=== PATIENT | male | born 1950 | race Caucasian/White ===

== ENCOUNTER → 2017-10-08 | Day surgery (SDC) | payer MEDICARE, OTHER ==
[~2017-10-08] MED LIST: ALTACE; AMIODARONE HCL400 MG PO; AMLODIPINE BESY10 MG PO; ASPIRIN81 MG PO; DIGOXIN125 MCG PO; FISH OIL + VIT1 EACH; FUROSEMIDE40 MG PO; GLUCOSAMINE 1,1 EACH PO; INSULIN REGULAR, HUMAN 100 UNIT/1 ML 3ML VIAL ONE; KOMBIGLYZE XR1 EAC2 PO; LORTAB 7.5-5001 EACH PO; METFORMIN; METFORMIN HCL500 MG PO; METFORMIN PO; METOPROLOL SUCC50 MG PO; METOPROLOL TAR100 MG PO; MULTI-VITAMIN1 EACH PO; OR PHACO EYE KIT ONE; PANTOPRAZOLE SO40 MG PO; PLAVIX; PLAVIX75 MG PO; POTASSIUM CHLO10 ME1 PO; PREOP PHACO EYE KIT ONE; RAMIPRIL10 MG PO; RAMIPRIL5 MG PO; SAXAGLIPTIN PO; SIMVASTATIN20 MG PO; VITAMIN C1000 M2 PO; VITAMIN E COMP1 EACH PO; XARELTO20 MG PO
== END | disposition home or self-care (01) ==
LOC: OR 11:11
PROVIDERS: ATTEND Ophthalmology
DX: H25.11 Age-related nuclear cataract, right eye (principal); I10 Essential (primary) hypertension; I48.91 Unspecified atrial fibrillation; E11.9 Type 2 diabetes mellitus without complications; K21.9 Gastro-esophageal reflux disease without esophagitis; M19.90 Unspecified osteoarthritis, unspecified site; Z79.02 Long term (current) use of antithrombotics/antiplatelets
CPT/HCPCS: 36415; 66984; 82948; V2632

== ENCOUNTER → 2018-05-06 | Day surgery (SDC) | payer MEDICARE, OTHER ==
[~2018-05-06] MED LIST changes: -INSULIN REGULAR, HUMAN 100 UNIT/1 ML 3ML VIAL ONE; +KETAMINE HCL INJ 50 MG/ML 10 ML VIAL ONE; +LEVEMIR100 UNIT/1 SC; +LIDOCAINE HCL 2% LOCAL INJ 5 ML SDV VIAL INJ ONE; +METRONIDAZOLE500 MG PO; +MIDAZOLAM HCL 2 MG/2 ML VIAL ONE; +NOVOLOG100 UNITS1 SC; -OR PHACO EYE KIT ONE; -PREOP PHACO EYE KIT ONE; +PROPOFOL IV EMULSION 10 MG/ML 50 ML VIAL ONE
== END | disposition home or self-care (01) ==
LOC: OR 08:23
PROVIDERS: ATTEND Internal Medicine Gastroenterology
DX: K29.70 Gastritis, unspecified, without bleeding (principal); K44.9 Diaphragmatic hernia without obstruction or gangrene; K21.9 Gastro-esophageal reflux disease without esophagitis; J45.909 Unspecified asthma, uncomplicated; J61 Pneumoconiosis due to asbestos and other mineral fibers; I10 Essential (primary) hypertension; I25.2 Old myocardial infarction; N20.0 Calculus of kidney; Z79.02 Long term (current) use of antithrombotics/antiplatelets; Z79.4 Long term (current) use of insulin; Z86.73 Personal history of transient ischemic attack (TIA), and cerebral infarction without residual deficits
CPT/HCPCS: 36415; 43239; 82948; 88305; 88312; J2001; J2250

== ENCOUNTER → 2018-05-13 | Day surgery (SDC) | payer MEDICARE, OTHER ==
[~2018-05-13] MED LIST changes: +FENTANYL CITRATE/PF 100MCG/2 ML INJ ONE; -KETAMINE HCL INJ 50 MG/ML 10 ML VIAL ONE
== END | disposition home or self-care (01) ==
LOC: OR 06:42
PROVIDERS: ATTEND Internal Medicine Gastroenterology
DX: Z12.11 Encounter for screening for malignant neoplasm of colon (principal); D12.0 Benign neoplasm of cecum; D12.2 Benign neoplasm of ascending colon; D12.4 Benign neoplasm of descending colon; K57.30 Diverticulosis of large intestine without perforation or abscess without bleeding; K64.8 Other hemorrhoids; K29.70 Gastritis, unspecified, without bleeding; K21.9 Gastro-esophageal reflux disease without esophagitis; K44.9 Diaphragmatic hernia without obstruction or gangrene; I10 Essential (primary) hypertension; I34.1 Nonrheumatic mitral (valve) prolapse; I48.91 Unspecified atrial fibrillation; R01.1 Cardiac murmur, unspecified; E11.9 Type 2 diabetes mellitus without complications; J45.909 Unspecified asthma, uncomplicated; N20.0 Calculus of kidney; I25.2 Old myocardial infarction; E78.5 Hyperlipidemia, unspecified; M19.90 Unspecified osteoarthritis, unspecified site; Z79.02 Long term (current) use of antithrombotics/antiplatelets; Z79.4 Long term (current) use of insulin; Z68.33 Body mass index [BMI] 33.0-33.9, adult; Z87.01 Personal history of pneumonia (recurrent); Z86.73 Personal history of transient ischemic attack (TIA), and cerebral infarction without residual deficits; Z96.652 Presence of left artificial knee joint; Z87.891 Personal history of nicotine dependence
CPT/HCPCS: 36415; 45384; 45385; 82948; 88305; J2001; J2250

== ENCOUNTER → 2019-01-01 | Outpatient (CLI) | payer MEDICARE, OTHER ==
[~2019-01-01] MED LIST changes: -FENTANYL CITRATE/PF 100MCG/2 ML INJ ONE; -LIDOCAINE HCL 2% LOCAL INJ 5 ML SDV VIAL INJ ONE; -MIDAZOLAM HCL 2 MG/2 ML VIAL ONE; -PROPOFOL IV EMULSION 10 MG/ML 50 ML VIAL ONE
--- NOTE | 2019-01-01 13:05 | Diagnostic Imaging Report ---
EXAM: US LIVER DATE: 01/01/2019 10:12 AM INDICATION: Cirrhosis of liver COMPARISON: None FINDINGS: Grayscale and color flow Doppler ultrasound of the right upper abdomen was performed. Liver: 22.8 cm span, hepatomegaly. Hyperechoic parenchyma. No intrahepatic mass or bile duct dilatation. Main portal vein 1.3 cm, nondilated, normal hepatopetal flow. Biliary: There is an echogenic filling defect in the gallbladder which is adherent to the gallbladder wall with no shadowing. No mobile shadowing gallstones. No gallbladder wall thickening. Sonographic Yu sign negative. Common bile duct 0.4 cm, normal. Pancreas: Visualized portions show no mass or duct dilatation. Right kidney: 13.2 cm in length. There is a 1.9 x 1.8 1.7 cm mid renal cyst. No hydronephrosis. Cortical echogenicity normal. Vessels: Aorta and IVC are largely obscured. Ascites: No free fluid in the right upper abdomen. IMPRESSION: 1. Hepatomegaly with no intrahepatic mass or bile duct dilatation. Hyperechoic parenchyma which may be seen with steatosis or cirrhosis. No portal vein dilatation. 2. There is an echogenic focus in the gallbladder which is adherent to the gallbladder wall without shadowing. This may represent a gallbladder polyp. No sonographic evidence for cholecystitis. Signed by: Dr. Otis Conroy M.D. on 01/01/2019 1:02 PM
== END ==
LOC: US 10:05
PROVIDERS: ATTEND Internal Medicine Gastroenterology
DX: K74.69 Other cirrhosis of liver (principal)
CPT/HCPCS: 76705

== ENCOUNTER 2019-05-24 10:08 | Emergency (ER) | payer MEDICARE, OTHER ==
[~2019-05-24] VITALS: Ht 198.1 cm; Wt 127.0 kg
--- OUTSIDE RECORDS SUMMARY | 2019-05-24 10:12 | XMS REPORT | Clinical Summary ---
Author Author [facility] Organization [facility] Address Unknown Phone Unavailable Care Team Providers Care Clinical Services Director Name Role Phone José Miguel Nolasco MD PCP Allergies No Known Allergies Medications End Date Status Medication Sig Dispensed Refills Start Date Active levoFLOXacin (LEVAQUIN) Take 500 mg 0 500 MG tablet by mouth daily. Active rivaroxaban (XARELTO) 20 Take 20 mg by 0 mg tablet mouth daily. Active metoprolol tartrate Take 100 mg 0 (LOPRESSOR) 100 mg tablet by mouth 2 (two) times a day. Active metFORMIN (GLUCOPHAGE) Take 1,000 mg 0 1,000 mg tablet by mouth 2 (two) times a day with meals. Active ramipril (ALTACE) 10 MG Take 10 mg by 0 capsule mouth daily. Active pantoprazole (PROTONIX) Take 40 mg by 0 40 MG EC tablet mouth daily. Active simvastatin (ZOCOR) 20 MG Take 20 mg by 0 tablet mouth nightly. Active digOXIN (LANOXIN) 125 mcg Take 125 mcg 0 tablet by mouth daily. Active potassium chloride Take 10 mEq 0 (K-DUR,KLOR-CON) 10 MEQ by mouth 2 CR tablet (two) times a day. Active furosemide (LASIX) 40 mg Take 40 mg by 0 tablet mouth daily. Active insulin detemir U-100 Inject 50 0 (LEVEMIR) 100 unit/mL Units under injection the skin nightly. Active insulin ASPART (NovoLOG) Inject 40 0 100 unit/mL injection Units under the skin 3 (three) times a day before meals. Active vymqm-1t-ulg-epa-fish oil Take by mouth 0 (FISH OIL) 120 mg-180 mg- 2 (two) times 60 mg-1,200 mg a day. capsule,delayed release(DR/EC) Active ascorbic acid, vitamin C, Take 500 mg 0 (VITAMIN C) 500 MG tablet by mouth daily. Active multivitamin with Take 1 tablet 0 minerals tablet by mouth daily. Active Problems Not on file Encounters Care Team Description Date Type Specialty Telma Bond MD 07/28/2018 Anesthesia Plastic Surgery Event Omar Middleton MD VITRECTOMY, membrane peel endolaser airfluid exchane and sf6 20% left eye 07/28/2018 Surgery Plastic Surgery Omar Middleton MD 07/28/2018 Hospital Plastic Surgery Encounter after 05/23/2018 Social History Date Tobacco Use Types Packs/Day Years Used Quit: 1999 Former Smoker 20 Smokeless Tobacco: Never Used Alcohol Use Drinks/Week oz/Week Comments Yes Sex Assigned at Date Recorded Not on file Industry Job Start Date Occupation Not on file Not on file Not on file Travel End Travel History Travel Start No recent travel history available. 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, 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] Case Notes REQ 1300 START, 23 GAUGE NEEDLE Special Needs REQ 1300 START, 23 GAUGE NEEDLE ECG 12-LEAD Routine 07/28/2018 12:36 PM CDT POC PANEL 4 Routine 07/28/2018 12:31 PM CDT after 05/23/2018 Results * ECG 12 lead (07/28/2018 12:36 PM CDT) Ventricular 68 [facility] rate Atrial rate 68 [facility] NE interval 194 [facility] QRSD interval 156 [facility] QT interval 424 [facility] QTC interval 450 [facility] P axis 1 31 [facility] MUSE QRS axis 1 34 [facility] MUSE T wave axis 31 [facility] MUSE EKG impression Normal sinus rhythm-Right [facility] MUSE bundle branch block-T wave abnormality, consider lateral ischemia-Abnormal ECG-In automated comparison with ECG of 20-JAN-2009 10:16,-aberrant conduction is no longer present-Right bundle branch block is now present- Specimen Performing Organization Address City/State/Zipcode Phone Number [facility] [address] [place] [address] * POC panel 4 (07/28/2018 12:31 PM CDT) POC sodium 132 (L) 135 - 148 mmol/L [facility] DEPARTMENT OF PATHOLOGY AND GENOMIC MEDICINE POC potassium 4.2 3.5 - 5.0 mmol/L [facility] DEPARTMENT OF PATHOLOGY AND GENOMIC MEDICINE POC hematocrit 46 41 - 51 % [facility] DEPARTMENT Comment: OF PATHOLOGY Meter ID: [id number] AND GENOMIC Winding Rack Operator: Jez ORDOÑEZ POC glucose 277 (H) 65 - 99 mg/dL [facility] DEPARTMENT OF PATHOLOGY AND GENOMIC MEDICINE Specimen Performing Organization Address [facility] Phone Number [facility] DEPARTMENT OF [address] [place] [id number] PATHOLOGY AND GENOMIC MEDICINE after 05/23/2018 Insurance Type Payer Benefit Subscriber ID Effective Phone Address Plan / Dates Group Medicare MEDICARE MEDICARE xxxxxxxxxx 2017-P [place], PART A AND resent [place] B Commercial [employer] [place] x[place]xx 2017-P [employer] resent INSURANCE Advance Directives Patient has advance care planning documents on file. For more information, casper steve contact: Vinnie Campa [address] [place] [address]
--- OUTSIDE RECORDS SUMMARY | 2019-05-24 10:12 | XMS REPORT ---
[facility] Address Unknown Phone Unavailable Care Team Providers Care Slackline Operator Name Role Phone HORTENCIA EASON Unavailable Unavailable Problems This patient has no known problems. Allergies, Adverse Reactions, Alerts This patient has no known allergies or adverse reactions. Medications This patient has no known medications. Results Test Description Test Time Test Comments Text Results Atomic Results Result Comments LIVER 2019-01-01 12:57:00 [place] [address] Patient Name: DAVID JC MR #: [id number] : 1950 Age/Sex: 68/M Req #: [id number] [facility] Physician: Ordered by: HORTENCIA EASON MD Report #: [id number] Location: Room/Bed: Procedure: [id number] US/US LIVER Exam Date: 01/01/19 Exam Time: 1031 REPORT STATUS: Signed EXAM: US LIVER DATE: 01/01/2019 10:12 AM INDICATION: Cir rhosis of liver COMPARISON: None FINDINGS: Grayscale and color flow Doppler ultrasound of the right upper abdomen was performed. Liver: 22.8 cm span, hepatomegaly. Hyperechoic parenchyma. No intrahepatic mass or bile duct dilatation. Main portal vein 1.3 cm, nondilated, normal hepatopetal flow. Biliary: There is an echogenic filling defect in the gallbladder which is adherent to the gallbladder wall with no shadowing. No mobile shadowing gallstones. No gallbladder wall thickening. Sonographic Yu sign negative. Common bile duct 0.4 cm, normal. Pancreas: Visualized portions show no mass or duct dilatation. Right kidney: 13.2 cm in length. There is a 1.9 x 1.8 1.7 cm mid renal cyst. No hydronephrosis. Cortical echogenicity normal. Vessels: Aorta and IVC are largely obscured. Ascites: No free fluid in the right upper abdomen. IMPRESSION: 1. Hepatomegaly with no intrahepatic mass or bile duct dilatation. Hyperechoic parenchyma which may be seen with steatosis or cirrhosis. No portal vein dilatation. 2. There is an echogenic focus in the gallbladder which is adherent to the gallbladder wall without shadowing. This may represent a gallbladder polyp. No sonographic evidence for cholecystitis. Signed by: Dr. Olivia Ashford M.D. on 01/01/2019 1:02 PM Dictated By: OLIVIA ASHFORD MD 1302 Transcribed By: KEMAR on 01/01/19 1302 COPY TO: HORTENCIA EASON MD US GUIDANCE FOR PROCEDURE 2018-09-18 10:08:00 [place] [address] Patient Name: DAVID JC MR #: [id number] : 1950 Age/Sex: 68/M Req #: [id number] Physician: Ordered by: HORTENCIA EASON MD Report #: [id number] Location: US Room/Bed: Procedure: [id number] US/US GUIDANCE FOR PROCEDURE Exam Date: 09/08/18 Exam Time: 929 REPORT STATUS: Signed PROCEDURE: ULTRASOUND GUIDED LIVER BIOPSY COMPARISON: None. INDICATIONS: ELEVATED LIVER ENZYMES SEDATION: Conscious sedation with Fentanyl and Versed was administered by IR nursing. Continuous hemodynamic monitoring was performed. MEDICATIONS: 10 cc of 1% subcutaneous lidocaine Fentanyl and versed per nursing administration records BLOOD LOSS: <5 cc. PROCEDURE: Informed written consent was obtained. The patient was prepped and draped in sterile fashion. A path to the right hepatic lobe was identified on ultrasound. 1% subcutaneous lidocaine was administered. With ultrasound guidance, a 19 gauge introducer needle was advanced into the right hepatic lobe. Three random core biopsies were obtained with a 20 gauge biopsy device and ultrasound guidance. Gelfoam embolization of the tract was performed and the introducer needle was removed. Post procedural ultrasound demonstrated no evidence of hematoma. The patient tolerated the procedure well. CONCLUSION: Ultrasound guided random core biopsies of the right hepatic lobe. Dictated by: MARGAUX SERVIN M.D. on 09/18/2018 at 10:08 Electronically approved by: MARGAUX SERVIN M.D. on 09/18/2018 at 10:08 Dictated By: MARGAUX SERVIN MD 1008 Transcribed By: ANIVAL on 09/18/18 1008 COPY TO: HORTENCIA EASON MD BIOPSY LIVER 2018-09-18 10:08:00 [place] [address] Patient Name: DAVID JC MR #: [id number] : 1950 Age/Sex: 68/M Req #: [id number] [facility] Physician: Ordered by: HORTENCIA EASON MD Report #: [id number] Location: Room/Bed: Procedure: [id number] IR/BIOPSY LIVER Exam Date: 09/08/18 Exam Time: 929 REPORT STATUS: Signed PROCEDURE: ULTRASOUND GUIDED LIVER BIOPSY COMPARIS ON: None. INDICATIONS: ELEVATED LIVER ENZYMES SEDATION: Conscious sedation with Fentanyl and Versed was administered by IR nursing. Continuous hemodynamic monitoring was performed. MEDICATIONS: 10 cc of 1% subcutaneous lidocaine Fentanyl and versed per nursing administration records BLOOD LOSS: <5 cc. PROCEDURE: Informed written consent was obtained. The patient was prepped and draped in sterile fashion. A path to the right hepatic lobe was identified on ultrasound. 1% subcutaneous lidocaine was administered. With ultrasound guidance, a 19 gauge introducer needle was advanced into the right hepatic lobe. Three random core biopsies were obtained with a 20 gauge biopsy device and ultrasound guidance. Gelfoam embolization of the tract was performed and the introducer needle was removed. Post procedural ultrasound demonstrated no evidence of hematoma. The patient tolerated the procedure well. CONCLUSION: Ultrasound guided random core biopsies of the right hepatic lobe. Dictated by: MARGAUX SERVIN M.D. on 09/18/2018 at 10:08 Electronically approved by: MARGAUX SERVIN M.D. on 09/18/2018 at 10:08 Dictated By: MARGAUX SERVIN MD 1008 Transcribed By: ANIVAL on 09/18/18 1008 COPY TO: HORTENCIA EASON MD
[2019-05-24] MEDS ORDERED: ALBUTEROL/IPRATROPIUM 3 ML NEB NEB ONE (10:45)
--- NOTE | 2019-05-24 11:16 | Diagnostic Imaging Report ---
EXAMINATION: CXR 2 VIEW - HOPD INDICATION: Cough, congestion ^[id number] ^1050 COMPARISON: None FINDINGS: PA and lateral views TUBES and LINES: None. LUNGS: Lungs are hyperinflated. There is no evidence of pneumonia or pulmonary edema. PLEURA: No pleural effusion or pneumothorax. HEART AND MEDIASTINUM: The cardiomediastinal silhouette is unremarkable. BONES AND SOFT TISSUES: No focal osseous lesions. Degenerative changes of the spine. Soft tissues are unremarkable. UPPER ABDOMEN: No free air under the diaphragm. IMPRESSION: Pulmonary hyperinflation consistent with COPD. No acute thoracic abnormality. Signed by: Dr. Timmy Grady MD on 05/24/2019 11:12 AM
[2019-05-24] MEDS ORDERED: ALBUTEROL SULF 0.083% NEB SOLN 3 ML NEB ONE (11:21)
[2019-05-24] MEDS ORDERED: IPRATROPIUM BROMIDE 0.02% 2.5 ML NEB ONE (11:22)
[2019-05-24] MEDS ORDERED: CEFTRIAXONE SOD 1 GM VIAL IV ONE (12:45)
[2019-05-24] MEDS ORDERED: CEFTRIAXONE SOD 1 GM/NS 50 ML 50 ML IV ONE ×2 (13:00→13:06)
[2019-05-24 13:33] VITALS: BP 122/62
== END 2019-05-24 13:26 | disposition home or self-care (01) ==
LOC: FSED 10:08
DX: R06.00 Dyspnea, unspecified (principal); R05 Cough; R07.89 Other chest pain; J44.1 Chronic obstructive pulmonary disease with (acute) exacerbation; J20.9 Acute bronchitis, unspecified
CPT/HCPCS: 71046; 80053; 82553; 83880; 84484; 85025; 99283; J0696

== ENCOUNTER → 2019-07-02 | Outpatient (CLI) | payer MEDICARE, OTHER ==
--- NOTE | 2019-07-02 09:52 | Diagnostic Imaging Report ---
EXAM: Right upper quadrant abdominal ultrasound INDICATION: Liver cirrhosis COMPARISON: Liver ultrasound of 01/01/2019 TECHNIQUE: Transverse and longitudinal images of the right upper quadrant abdomen were obtained FINDINGS: Liver: Size: 20.9 cm in the right midclavicular line, enlarged Appearance: Increased echogenicity, mildly nodular contour Mass: No focal masses Gallbladder: Unchanged appearance of 4 mm echogenic focus along the dependent gallbladder wall with shadowing, consistent with small gallstone. No gallbladder distension, pericholecystic fluid, wall thickening, or reported sonographic Yu's sign. Gallbladder wall measures 3 mm. Bile Ducts: Intrahepatic Ducts: No dilatation Extrahepatic Ducts: Common bile duct measures 3 mm, no dilatation Pancreas: Visualized portions of the pancreatic head, neck and proximal body are normal. Kidney: The right kidney measures 13.5 cm without evidence of hydronephrosis or stone. 2.2 x 1.4 x 1.8 cm mid pole simple cyst. Vessels: Aorta: Visualized portions are normal Inferior Vena Cava: Visualized portions are normal Main Portal Vein: 1.5 cm, normal size with hepatopetal flow. Free Fluid: No ascites or pleural effusion IMPRESSION: Hepatomegaly, hepatic steatosis, and mildly nodular surface contour compatible with early cirrhosis. Cholelithiasis without sonographic evidence of cholecystitis. Right renal simple cyst. Signed by: Donnie Douglas MD on 07/02/2019 9:49 AM
== END ==
LOC: US 08:18
PROVIDERS: ATTEND Internal Medicine Gastroenterology
DX: K74.69 Other cirrhosis of liver (principal)
CPT/HCPCS: 76705

== ENCOUNTER → 2020-04-12 | Day surgery (SDC) | payer MEDICARE, OTHER ==
[2020-04-08 16:01] LABS: BASOPHILS # (AUTO) 0.1 (0.0-0.1); BASOPHILS % 0.7 % (0.0-1.0); EOSINOPHILS # (AUTO) 0.4 (0.0-0.4); EOSINOPHILS % 4.8 % (0.0-6.0); HEMATOCRIT 43.6 % (38.2-49.6); HEMOGLOBIN 14.7 g/dL (14.0-18.0); LYMPHOCYTES # (AUTO) 3.6 (1.0-3.2); LYMPHOCYTES % 39.3 % (18.0-39.1); MEAN CORPUSCULAR HEMOGLOBIN 30.9 pg (28-32); MEAN CORPUSCULAR HGB CONC 33.7 g/dL (31-35); MEAN CORPUSCULAR VOLUME 91.6 fL (81-99); MONOCYTES # (AUTO) 0.8 (0.2-0.8); MONOCYTES % 9.1 % (4.4-11.3); NEUTROPHILS # (AUTO) 4.2 (2.1-6.9); NEUTROPHILS % 45.9 % (38.7-80.0); PLATELET COUNT 177 x10e3/uL (140-360); RED BLOOD COUNT 4.76 x10e6/uL (4.3-5.7); RED CELL DISTRIBUTION WIDTH 13.2 % (11.7-14.4)
[2020-04-08 16:11] LABS: INR 0.91; PROTHROMBIN TIME 12.8 seconds (11.9-14.5)
[2020-04-08 16:30] LABS: ALBUMIN 3.6 g/dL (3.5-5.0); ANION GAP 14.1 mmol/L (8-16); CALCIUM 9.6 mg/dL (8.4-10.2); CREATININE, SERUM 1.53 mg/dL (0.72-1.25); POTASSIUM 4.1 mmol/L (3.5-5.1)
[~2020-04-12] MED LIST changes: +ALIGN4 MG PO; +ENTERAGAM POWDER5 GM PO; +INSULIN REGULAR, HUMAN 100 UNIT/1 ML 3ML VIAL ONE; +LIDOCAINE HCL 2% LOCAL INJ 5 ML SDV VIAL INJ ONE; +MIDAZOLAM HCL 2 MG/2 ML VIAL ONE; +PROPOFOL IV EMULSION 10 MG/ML 20 ML VIAL ONE
[2020-04-12 09:35] VITALS: BP 120/75
== END | disposition home or self-care (01) ==
LOC: OR 06:45
PROVIDERS: ATTEND Internal Medicine Gastroenterology
DX: K74.60 Unspecified cirrhosis of liver (principal); K29.70 Gastritis, unspecified, without bleeding; K44.9 Diaphragmatic hernia without obstruction or gangrene; K21.9 Gastro-esophageal reflux disease without esophagitis; R19.7 Diarrhea, unspecified; J44.9 Chronic obstructive pulmonary disease, unspecified; I25.2 Old myocardial infarction; I48.91 Unspecified atrial fibrillation; N20.0 Calculus of kidney; E74.31 Sucrase-isomaltase deficiency; R94.4 Abnormal results of kidney function studies; Z01.810 Encounter for preprocedural cardiovascular examination; Z01.812 Encounter for preprocedural laboratory examination; Z11.59 Encounter for screening for other viral diseases; Z79.02 Long term (current) use of antithrombotics/antiplatelets; Z79.84 Long term (current) use of oral hypoglycemic drugs; Z79.4 Long term (current) use of insulin; Z86.73 Personal history of transient ischemic attack (TIA), and cerebral infarction without residual deficits; Z87.891 Personal history of nicotine dependence
CPT/HCPCS: 36415 ×2; 43239; 80053; 82948; 85025; 85610; 85730; 87635; 88305; 88312; 93005; J2001; J2250; J2704; J1817

== ENCOUNTER → 2021-01-31 | Day surgery (SDC) | payer MEDICARE, OTHER ==
[2021-01-26 10:57] LABS: BASOPHILS # (AUTO) 0.1 (0.0-0.1); BASOPHILS % 0.7 % (0.0-1.0); EOSINOPHILS # (AUTO) 0.4 (0.0-0.4); EOSINOPHILS % 4.3 % (0.0-6.0); HEMATOCRIT 46.3 % (38.2-49.6); HEMOGLOBIN 15.8 g/dL (14.0-18.0); LYMPHOCYTES # (AUTO) 3.2 (1.0-3.2); LYMPHOCYTES % 35.3 % (18.0-39.1); MEAN CORPUSCULAR HEMOGLOBIN 30.8 pg (28-32); MEAN CORPUSCULAR HGB CONC 34.1 g/dL (31-35); MEAN CORPUSCULAR VOLUME 90.3 fL (81-99); MONOCYTES # (AUTO) 0.7 (0.2-0.8); MONOCYTES % 7.8 % (4.4-11.3); NEUTROPHILS # (AUTO) 4.6 (2.1-6.9); NEUTROPHILS % 51.6 % (38.7-80.0); PLATELET COUNT 190 x10e3/uL (140-360); RED BLOOD COUNT 5.13 x10e6/uL (4.3-5.7); RED CELL DISTRIBUTION WIDTH 13.1 % (11.7-14.4)
[2021-01-26 11:14] LABS: INR 1.12
[2021-01-26 11:15] LABS: ALBUMIN/GLOBULIN RATIO 1.1 (0.8-2.0); ANION GAP 17.3 mmol/L (8-16); CALCIUM 9.6 mg/dL (8.4-10.2); CREATININE, SERUM 1.53 mg/dL (0.72-1.25); PARTIAL THROMBOPLASTIN TIME 33.7 seconds (23.8-35.5); POTASSIUM 4.3 mmol/L (3.5-5.1)
[~2021-01-31] MED LIST changes: -FISH OIL + VIT1 EACH; +FISH OIL + VIT1 EACH PO; -INSULIN REGULAR, HUMAN 100 UNIT/1 ML 3ML VIAL ONE; -LIDOCAINE HCL 2% LOCAL INJ 5 ML SDV VIAL INJ ONE; -MIDAZOLAM HCL 2 MG/2 ML VIAL ONE; -PROPOFOL IV EMULSION 10 MG/ML 20 ML VIAL ONE
[2021-01-31 11:40] VITALS: BP 114/58
== END | disposition home or self-care (01) ==
LOC: OR 09:23
PROVIDERS: ATTEND Internal Medicine Gastroenterology
DX: K31.7 Polyp of stomach and duodenum (principal); K29.70 Gastritis, unspecified, without bleeding; K44.9 Diaphragmatic hernia without obstruction or gangrene; K21.9 Gastro-esophageal reflux disease without esophagitis; R19.7 Diarrhea, unspecified; K74.60 Unspecified cirrhosis of liver; E11.9 Type 2 diabetes mellitus without complications; I10 Essential (primary) hypertension; I48.91 Unspecified atrial fibrillation; E78.5 Hyperlipidemia, unspecified; I25.2 Old myocardial infarction; I49.9 Cardiac arrhythmia, unspecified; N28.9 Disorder of kidney and ureter, unspecified; J44.9 Chronic obstructive pulmonary disease, unspecified; Z01.810 Encounter for preprocedural cardiovascular examination; Z01.812 Encounter for preprocedural laboratory examination; Z20.822 Contact with and (suspected) exposure to COVID-19; Z79.02 Long term (current) use of antithrombotics/antiplatelets; Z79.4 Long term (current) use of insulin; Z68.37 Body mass index [BMI] 37.0-37.9, adult; Z86.73 Personal history of transient ischemic attack (TIA), and cerebral infarction without residual deficits
CPT/HCPCS: 36415 ×2; 43239; 43251; 80053; 82948; 85025; 85610; 85730; 88305; 88312; 93005; U0002

== ENCOUNTER 2021-06-14 09:56 | Emergency (ER) | payer MEDICARE, OTHER ==
[~2021-06-14] VITALS: Ht 198.1 cm; Wt 130.0 kg
[2021-06-14] MEDS ORDERED: CYCLOBENZAPRINE HCL 10 MG TAB PO ONE (10:45)
[2021-06-14] MEDS: MORPHINE SULFATE INJ 4 MG/ML INJ 1ML IM PRN ×2 (11:44→11:45)
[2021-06-14] MEDS ORDERED: MORPHINE SULFATE INJ 4 MG/ML INJ 1ML ONE (11:51)
[2021-06-14] MEDS ORDERED: CYCLOBENZAPRINE HCL 10 MG TAB ONE (11:51)
[2021-06-14] MEDS ORDERED: DOCUSATE SODIU100 MG PO (13:37)
[2021-06-14] MEDS ORDERED: LIDOCAINE PAIN1 EACH TD (13:37)
[2021-06-14] MEDS ORDERED: CYCLOBENZAPRINE5 MG PO (13:37)
[2021-06-14] MEDS ORDERED: HYDROCODON-ACE1 EAC9 PO (13:37)
[2021-06-14] MEDS ORDERED: HYDROCODONE/APAP 5MG-325MG TAB ONE (13:45)
[2021-06-14] MEDS ORDERED: HYDROCODONE/APAP 10MG-325MG TAB PO ONE (13:45)
== END 2021-06-14 13:52 | disposition home or self-care (01) ==
LOC: FSED 10:00
DX: S12.501A Unspecified nondisplaced fracture of sixth cervical vertebra, initial encounter for closed fracture (principal); S32.020A Wedge compression fracture of second lumbar vertebra, initial encounter for closed fracture; W18.2XXA Fall in (into) shower or empty bathtub, initial encounter; Y93.E1 Activity, personal bathing and showering; Y92.002 Bathroom of unspecified non-institutional (private) residence as the place of occurrence of the external cause; I10 Essential (primary) hypertension; E78.5 Hyperlipidemia, unspecified; I25.10 Atherosclerotic heart disease of native coronary artery without angina pectoris; K76.9 Liver disease, unspecified; E78.00 Pure hypercholesterolemia, unspecified
CPT/HCPCS: 70450; 72125; 72131; 96372; 99283; J2270

== ENCOUNTER 2023-02-25 12:00 | Emergency (ER) | payer MEDICARE, OTHER ==
[~2023-02-25] VITALS: Ht 198.1 cm; Wt 122.5 kg
[~2023-02-25 12:00] MED LIST changes: +CYCLOBENZAPRINE5 MG PO; +DOCUSATE SODIU100 MG PO; +HYDROCODON-ACE1 EAC9 PO; +LIDOCAINE PAIN1 EACH TD
[2023-02-25] MEDS ORDERED: ASPIRIN 325 MG TAB PO ONE (12:15)
[2023-02-25 13:45] VITALS: O2SAT 98
== END 2023-02-25 14:20 | disposition other institution (70) ==
LOC: FSED 12:10
DX: R06.00 Dyspnea, unspecified (principal); R07.9 Chest pain, unspecified; I10 Essential (primary) hypertension; E11.9 Type 2 diabetes mellitus without complications; E78.5 Hyperlipidemia, unspecified; K76.9 Liver disease, unspecified; I25.10 Atherosclerotic heart disease of native coronary artery without angina pectoris; R94.31 Abnormal electrocardiogram [ECG] [EKG]; I25.2 Old myocardial infarction; Z86.73 Personal history of transient ischemic attack (TIA), and cerebral infarction without residual deficits
CPT/HCPCS: 71046; 80053; 81003; 82553; 83880; 84484; 85610; 93005; 99284

== ENCOUNTER 2023-04-08 06:28 | Day surgery (SDC) | payer MEDICARE, OTHER ==
[2023-04-04 07:50] LABS: BASOPHILS # (AUTO) 0.1 (0.0-0.1); BASOPHILS % 0.7 % (0.0-1.0); EOSINOPHILS # (AUTO) 0.3 (0.0-0.4); EOSINOPHILS % 3.8 % (0.0-6.0); LYMPHOCYTES # (AUTO) 2.6 (1.0-3.2); LYMPHOCYTES % 32.6 % (18.0-39.1); MEAN CORPUSCULAR HEMOGLOBIN 28.6 pg (28-32); MEAN CORPUSCULAR HGB CONC 33.3 g/dL (31-35); MEAN CORPUSCULAR VOLUME 85.9 fL (81-99); MONOCYTES # (AUTO) 0.6 (0.2-0.8); MONOCYTES % 7.8 % (4.4-11.3); NEUTROPHILS # (AUTO) 4.5 (2.1-6.9); NEUTROPHILS % 54.9 % (38.7-80.0); PLATELET COUNT 181 x10e3/uL (140-360); RED BLOOD COUNT 5.24 x10e6/uL (4.3-5.7); RED CELL DISTRIBUTION WIDTH 13.8 % (11.7-14.4)
[2023-04-04 08:10] LABS: INR 1.38; PROTHROMBIN TIME 17.5 seconds (11.9-14.5)
[2023-04-04 08:11] LABS: PARTIAL THROMBOPLASTIN TIME 39.6 seconds (23.8-35.5)
[2023-04-04 08:20] LABS: ALBUMIN 3.8 g/dL (3.5-5.0); ALBUMIN/GLOBULIN RATIO 1.2 (0.8-2.0); ANION GAP 16.2 mmol/L (8-16); CALCIUM 9.7 mg/dL (8.4-10.2); CHOL/HDL RATIO 4.8 (3.9-4.7); CREATININE, SERUM 2.12 mg/dL (0.72-1.25); POTASSIUM 4.2 mmol/L (3.5-5.1)
[2023-04-08] VITALS (9 sets, daily range): BP systolic 118–143; BP diastolic 65–73; PULSE 66–97; RESP 9–19; TEMP 97.1; O2SAT 92–97
[~2023-04-08] VITALS: Ht 198.1 cm; Wt 122.5 kg
[~2023-04-08 06:28] MED LIST changes: +FARXIGA10 MG PO; +JARDIANCE10 MG PO; +VITAMIN C1000 MG PO; +VITAMIN E400 UNI1 PO
[2023-04-08] MEDS ORDERED: SODIUM CHLORIDE 0.9% 1000ML 1,000 ML ONE ×2 (06:51→07:20)
[2023-04-08] MEDS ORDERED: HEPARIN SOD/SOD CHLORIDE 2,000 ML ONE (07:19)
[2023-04-08] MEDS ORDERED: HEPARIN SOD (PORCINE) 1000 UNIT/ML 30ML ONE (07:19)
[2023-04-08] MEDS ORDERED: LIDOCAINE HCL 2% LOCAL 20 ML VIAL ONE (07:19)
[2023-04-08] MEDS ORDERED: NITROGLYCERIN/D5W 200 MCG/ML 250 ML ONE (07:20)
[2023-04-08] MEDS ORDERED: IOPAMIDOL 370 MG/ML 100 ML INFUS..BTL INJ ONE ×2 (07:20→08:48)
[2023-04-08] MEDS ORDERED: VERAPAMIL HCL 2.5 MG/ML 2 ML VIAL ONE ×2 (07:22→08:13)
[2023-04-08] MEDS ORDERED: MIDAZOLAM HCL 2 MG/2 ML VIAL ONE (07:23)
[2023-04-08] MEDS ORDERED: FENTANYL CITRATE/PF 100MCG/2 ML INJ ONE (07:23)
== END 2023-04-08 11:10 | disposition home or self-care (01) ==
LOC: CATH LAB 06:28
PROVIDERS: ATTEND Internal Medicine Cardiovascular Disease
DX: I25.10 Atherosclerotic heart disease of native coronary artery without angina pectoris (principal); R94.39 Abnormal result of other cardiovascular function study; I48.0 Paroxysmal atrial fibrillation; I11.0 Hypertensive heart disease with heart failure; I50.32 Chronic diastolic (congestive) heart failure; I36.1 Nonrheumatic tricuspid (valve) insufficiency; I49.3 Ventricular premature depolarization; R00.2 Palpitations; R01.2 Other cardiac sounds; K44.9 Diaphragmatic hernia without obstruction or gangrene; E13.40 Other specified diabetes mellitus with diabetic neuropathy, unspecified; K74.60 Unspecified cirrhosis of liver; H33.002 Unspecified retinal detachment with retinal break, left eye; J44.9 Chronic obstructive pulmonary disease, unspecified; Z01.810 Encounter for preprocedural cardiovascular examination; Z01.812 Encounter for preprocedural laboratory examination; Z01.818 Encounter for other preprocedural examination; Z79.02 Long term (current) use of antithrombotics/antiplatelets; Z79.4 Long term (current) use of insulin; Z79.84 Long term (current) use of oral hypoglycemic drugs; Z79.899 Other long term (current) drug therapy; Z68.31 Body mass index [BMI] 31.0-31.9, adult; Z86.73 Personal history of transient ischemic attack (TIA), and cerebral infarction without residual deficits; Z82.49 Family history of ischemic heart disease and other diseases of the circulatory system
CPT/HCPCS: 36415; 71046; 80053; 80061; 85025; 85610; 85730; 93005; 93454; C1887; J1644; J2001; J2250; J3010; J7030; Q9967; 99152

== ENCOUNTER → 2024-06-01 | Outpatient (REF) | payer MEDICARE | LOC: US 09:13 | PROVIDERS: ATTEND Nurse Practitioner Family | DX: K74.60 Unspecified cirrhosis of liver (principal) | CPT/HCPCS: 76705 ==

== ENCOUNTER 2025-06-23 10:36 | Inpatient (IN) | payer MEDICARE ==
[~2025-06-23] VITALS: Ht 198.1 cm; Wt 129.7 kg
[2025-06-23 10:47] VITALS: TEMP 98
[2025-06-23 11:28] LABS: BASOPHILS % 0.3 % (0.0-1.0); EOSINOPHILS % 3.4 % (0.0-6.0); LYMPHOCYTES % 30.0 % (18.0-39.1); MONOCYTES % 8.8 % (4.4-11.3); NEUTROPHILS % 57.3 % (38.7-80.0); RED CELL DISTRIBUTION WIDTH 15.4 % (11.7-14.4)
[2025-06-23 12:02] LABS: EST GLOMERULAR FILTRATION RATE 42.0 ML/MIN (>=60)
[2025-06-23] MEDS: FUROSEMIDE INJ 10 MG/ML 4 ML VIAL IV SCH (12:44)
[2025-06-23 13:18] VITALS: PULSE 67; RESP 18; O2SAT 97
[2025-06-23 16:32] VITALS: PULSE 68; RESP 16
[2025-06-23 17:00] VITALS: BP 111/66; PULSE 77; RESP 18; TEMP 97.2; O2SAT 97
[2025-06-23] MEDS ORDERED: LANTUS 3ML100 UNITS/ (17:56)
[2025-06-23 19:44] VITALS: PULSE 70; RESP 18; O2SAT 96
[2025-06-23 20:00] VITALS: BP 123/68; PULSE 76; RESP 18; TEMP 98; O2SAT 98
[2025-06-23] MEDS ORDERED: FUROSEMIDE INJ 10 MG/ML 4 ML VIAL IV SCH (21:00)
[2025-06-24] VITALS (9 sets, daily range): BP systolic 106–140; BP diastolic 73–80; PULSE 66–87; RESP 17–20; TEMP 97.3–98.1; O2SAT 87–100
[2025-06-24 06:55] LABS: BASOPHILS % 0.3 % (0.0-1.0); EOSINOPHILS % 3.1 % (0.0-6.0); LYMPHOCYTES % 28.9 % (18.0-39.1); MONOCYTES % 8.5 % (4.4-11.3); NEUTROPHILS % 58.9 % (38.7-80.0); RED CELL DISTRIBUTION WIDTH 15.6 % (11.7-14.4)
[2025-06-24 07:12] LABS: EST GLOMERULAR FILTRATION RATE 38.0 ML/MIN (>=60)
[2025-06-24] MEDS: PANTOPRAZOLE SOD 40 MG TABEC PO SCH (09:44)
[2025-06-24] MEDS: METFORMIN HCL 500 MG TAB PO SCH (09:44)
[2025-06-24] MEDS: METOPROLOL TARTRATE 50 MG TAB PO SCH (09:44)
[2025-06-24] MEDS: EMPAGLIFLOZIN 10 MG TABLET PO SCH (09:44)
[2025-06-24] MEDS: DIGOXIN 0.125 MG TAB PO SCH (09:58)
[2025-06-24] MEDS: SIMVASTATIN 20 MG TAB PO SCH (20:45)
[2025-06-24] MEDS: RIVAROXABAN 20 MG TABLET PO SCH (20:45)
[2025-06-25] VITALS (8 sets, daily range): BP systolic 120–151; BP diastolic 77–90; PULSE 67–79; RESP 17–20; TEMP 96.7–97.6; O2SAT 96–99
[2025-06-25] MEDS ORDERED: DEXTROSE 50% SYRINGE 50 ML IV PRN (22:00)
[2025-06-25] MEDS: INSULIN LISPRO 100 UNIT/1 ML 3ML VIAL SQ SCH (22:14)
[2025-06-26] VITALS (9 sets, daily range): BP systolic 111–152; BP diastolic 72–84; PULSE 71–80; RESP 18–21; TEMP 96.5–98; O2SAT 95–99
[2025-06-26 05:46] LABS: BASOPHILS % 0.3 % (0.0-1.0); EOSINOPHILS % 3.7 % (0.0-6.0); LYMPHOCYTES % 29.9 % (18.0-39.1); MONOCYTES % 9.3 % (4.4-11.3); NEUTROPHILS % 56.5 % (38.7-80.0); RED CELL DISTRIBUTION WIDTH 15.2 % (11.7-14.4)
[2025-06-26 06:13] LABS: EST GLOMERULAR FILTRATION RATE 36.0 ML/MIN (>=60)
[2025-06-27] VITALS (8 sets, daily range): BP systolic 135–164; BP diastolic 71–90; PULSE 74–88; RESP 18–20; TEMP 97.5–98.2; O2SAT 95–100
[2025-06-27 06:38] LABS: EST GLOMERULAR FILTRATION RATE 36.0 ML/MIN (>=60)
[2025-06-27 16:33] LABS: CREATININE,URINE RANDOM 47.51 mg/dL (63-166); TOTAL PROTEIN, URINE 10.0 mg/dL (1-14)
[2025-06-28 03:12] VITALS: BP 133/74; PULSE 87; RESP 18; TEMP 97.4; O2SAT 98
[2025-06-28 06:06] LABS: BASOPHILS % 0.5 % (0.0-1.0); EOSINOPHILS % 3.2 % (0.0-6.0); LYMPHOCYTES % 33.4 % (18.0-39.1); MONOCYTES % 9.4 % (4.4-11.3); NEUTROPHILS % 52.9 % (38.7-80.0); RED CELL DISTRIBUTION WIDTH 14.9 % (11.7-14.4)
[2025-06-28 06:38] LABS: EST GLOMERULAR FILTRATION RATE 33.0 ML/MIN (>=60); PHOSPHORUS 4.4 MG/DL (2.3-4.7)
[2025-06-28 08:00] VITALS: BP 155/76; PULSE 93; RESP 20; TEMP 97.6; O2SAT 97
[2025-06-28 09:00] VITALS: BP 155/76; PULSE 93; RESP 20; TEMP 97.6; O2SAT 97
[2025-06-28] MEDS: FUROSEMIDE 40 MG TAB PO ONE (10:11)
[2025-06-28 12:00] VITALS: BP 109/87; PULSE 89; RESP 20; TEMP 97.7; O2SAT 96
[2025-06-28 16:00] VITALS: BP 130/78; PULSE 72; RESP 21; TEMP 97.4; O2SAT 96
[2025-06-28] MEDS: FUROSEMIDE 40 MG TAB PO SCH (16:54)
[2025-06-28 20:00] VITALS: BP 146/79; PULSE 73; RESP 21; TEMP 98.5; O2SAT 96
[2025-06-29 05:24] LABS: OSMOLALITY,URINE 406 mOsmol/kg (.)
[2025-06-29 06:34] LABS: EST GLOMERULAR FILTRATION RATE 35.0 ML/MIN (>=60)
[2025-06-29 07:14] LABS: HEPATITIS B SURFACE AG (P) Negative (Negative); RHEUMATOID FACTOR <10.0 IU/mL (<14.0)
[2025-06-29 07:44] VITALS: BP 123/72; PULSE 88; RESP 18; TEMP 97.1; O2SAT 97
[2025-06-29 11:39] VITALS: BP 137/83; PULSE 80; RESP 19; TEMP 97.9; O2SAT 98
[2025-06-29 14:12] LABS: ALBUMIN,URINE PEP 66.7 % (.); ALPHA 1 GLOBULIN URINE PEP 0.6 % (.); ALPHA 2 GLOBULIN URINE PEP 8.0 % (.); BETA GLOBULIN URINE PEP 13.5 % (.); GAMMA GLOBULIN URINE PEP 11.3 % (.); M-SPIKE % Not Observed % (Not Observed); PROTEIN URINE PEP 24.6 mg/dL (Not Estab.)
[2025-06-29 16:00] VITALS: BP 133/76; PULSE 75; RESP 18; TEMP 97.7; O2SAT 98
[2025-06-29 17:44] LABS: OSMOLALITY,SERUM OSMOMETER 309 mOsmol/kg (280-301)
[2025-06-29 20:00] VITALS: BP 130/78; PULSE 75; RESP 17; TEMP 97.6; O2SAT 97
[2025-06-29 23:48] VITALS: BP 145/80; PULSE 75; RESP 17; TEMP 97.5; O2SAT 97
[2025-06-30 04:00] VITALS: BP 140/75; PULSE 80; RESP 20; TEMP 97.3; O2SAT 96
[2025-06-30 05:58] LABS: EST GLOMERULAR FILTRATION RATE 38.0 ML/MIN (>=60)
[2025-06-30 07:41] LABS: KAPPA LIGHT CHAINS 54.8; KAPPA/LAMBDA RATIO 1.53; LAMBDA LIGHT CHAINS 35.9
[2025-06-30 07:42] LABS: SPE TOTAL PROTEIN 6.5
[2025-06-30 09:00] VITALS: BP 140/75; PULSE 80; RESP 20; TEMP 97.3; O2SAT 96
[2025-06-30 09:16] VITALS: BP 131/83; PULSE 86; RESP 18; TEMP 97.7; O2SAT 95
[2025-06-30 09:27] VITALS: BP 131/83; PULSE 86
[2025-07-05 09:52] LABS: A/G RATIO 1.0
[2025-07-05 09:54] LABS: SPE ALPHA 1 GLOBULIN 0.2; SPE ALPHA 2 GLOBULIN 1.0
[2025-07-05 09:55] LABS: GLOBULIN TOTAL 3.3; SPE GAMMA GLOBULIN 0.9
== END 2025-06-30 12:48 | disposition home or self-care (01) | DRG 291 ==
LOC: ER 10:47 → ERHOLD 11:39 → MED/SURG3 16:40
PROVIDERS: ADMIT Internal Medicine; ATTEND Internal Medicine
DX: I13.0 Hypertensive heart and chronic kidney disease with heart failure and stage 1 through stage 4 chronic kidney disease, or unspecified chronic kidney disease (principal); I50.33 Acute on chronic diastolic (congestive) heart failure; N17.9 Acute kidney failure, unspecified; E11.22 Type 2 diabetes mellitus with diabetic chronic kidney disease; N18.31 Chronic kidney disease, stage 3a; K21.9 Gastro-esophageal reflux disease without esophagitis; K75.81 Nonalcoholic steatohepatitis (NASH); E78.00 Pure hypercholesterolemia, unspecified; J44.9 Chronic obstructive pulmonary disease, unspecified; I48.91 Unspecified atrial fibrillation; I25.10 Atherosclerotic heart disease of native coronary artery without angina pectoris; R33.9 Retention of urine, unspecified; E66.811 Obesity, class 1; Z68.33 Body mass index [BMI] 33.0-33.9, adult; Z79.84 Long term (current) use of oral hypoglycemic drugs; Z79.4 Long term (current) use of insulin; Z79.01 Long term (current) use of anticoagulants; I25.2 Old myocardial infarction; Z86.73 Personal history of transient ischemic attack (TIA), and cerebral infarction without residual deficits
CPT/HCPCS: 36415; 51700; 71045; 76770; 80048; 80053; 82570; 82948; 83735; 83880; 83930; 83935; 83970; 84100; 84156; 84165; 84166; 84484; 85025; 86039; 86431; 87340; 93005; 94799; 96372; 99284; J1938; J2470